=== PATIENT | male | born 1975 | race Caucasian/White ===

== ENCOUNTER 2018-01-06 11:39 | Emergency (ER) | payer OTHER ==
[~2018-01-06] VITALS: Ht 167.6 cm; Wt 93.0 kg
[2018-01-06] MEDS ORDERED: LIDOCAINE 1% Multi-Dose 20 ML VIAL. IJ ONE (12:00)
[2018-01-06] MEDS ORDERED: DIPHTH,PERTUSS(ACELL),TET TOX 0.5 ML DISP.SYRIN. VAX IM ONE (12:00)
--- NOTE | 2018-01-06 12:47 | RAD ---
History: Laceration of the right elbow. Comparison: None. Findings: AP, lateral, and oblique views of the right elbow. No acute fracture or dislocation is identified. No joint effusion is seen. Posterior elbow soft tissue gas is present, compatible with laceration. No radiopaque foreign body is seen. Impression: 1. Posterior laceration. 2. No acute osseous traumatic injury identified. Electronically signed by: Facundo Adrian MD (01/06/2018 12:44 PM) [facility]
[2018-01-06] MEDS ORDERED: HYDR-2758 PO (13:43)
[2018-01-06 13:44] VITALS: BP 141/80
--- NOTE | 2018-01-06 13:44 | PHYS DOC ---
Past History Past Medical History: High Cholesterol, Hypertension, Hypothyroid Past Surgical History: Other Alcohol Use: Heavy Drug Use: None Adult General Chief Complaint Chief Complaint: LACERATION/AVULSION HPI HPI 42-year-old male who is right-hand dominant presenting to the emergency department today after falling backwards and injuring his right elbow sustaining multiple lacerations to the elbow region. He is unsure if his tetanus is up-to-date. He denies any numbness weakness or tingling in his hand. He has a sharp pain in his elbow that is moderate constant and without alleviating factors. He denies any other injuries. Review of systems is negative for chest pain or shoulder pain wrist pain or any other injuries. All other review of systems is negative unless otherwise noted in history of present illness. ED course: 42-year-old male presenting the emergency department sustaining 5 lacerations to his elbow after falling backward on sharp metal. On examination he has one primary laceration on the volar aspect of his forearm that is proximal to the elbow. It is approximately half centimeter deep and on inspection in good lighting with good hemostasis shows no evidence of tendon or nerve injury under range of motion of the fingers. Distally the patient demonstrates the ability to make an A-OK, cross his fingers and give a thumbs up. He has normal sensation in his right hand. Palpable pulse with 2 second cap refill. The remaining for lacerations are superficial less than 1/10 of a millimeter. There are 2 or proximal to the primary laceration 1 is ulnarly lateral and the other is more dorsally located. X-ray unremarkable for any radiopaque materials. The wound does not involve the joint. The wound was washed out in the emergency department with sterile saline. The area around the wound was cleansed with Betadine. The wound was numbed up with 1% lidocaine and the primary laceration was sutured with simple interrupted sutures. The 2 proximal lacerations or 1 cm in length were reapproximated by a single suture to bring the skin together and overlying Steri-Strips. The remaining of the lacerations were repaired by Steri-Strips. The wound was covered with nonadherent dressing. He will return to clinic in 7 days for suture removal.The patient has been examined and was not found to have an emergency medical condition. The patient was then discharged home in stable condition. They were to return if their symptoms worsened or if they were concerned for any reason. [id number] discharge instructions and return precautions were given. Patient' s questions were answered to their satisfaction. Patient is comfortable with plan. Review of Systems Review of Systems SEE ABOVE. Current Medications Current Medications Current Medications Medications (Trade) Dose Ordered Sig/Kyler Start Time Stop Time Status Last Admin Dose Admin Diphtheria/ Tetanus/Acell Pertussis (Boostrix) 0.5 ml ONCE ONCE 01/06/18 12:00 01/06/18 12:06 DC 01/06/18 12:21 0.5 ML Lidocaine HCl 10 ml 1X ONCE 01/06/18 12:00 01/06/18 12:06 DC 01/06/18 12:21 10 ML Allergies Allergies Allergies Coded Allergies Type Severity Reaction Last Updated Verified No Known Drug Allergies 01/06/18 No Physical Exam Physical Exam SEE ABOVE Constitutional: Well developed, well nourished, no acute distress, non-toxic appearance. [] HENT: Normocephalic, atraumatic, bilateral external ears normal, oropharynx moist, no oral exudates, nose normal. [] Eyes: PERRLA, EOMI, conjunctiva normal, no discharge. [] Neck: Normal range of motion, no tenderness, supple, no stridor. [] Cardiovascular:Heart rate regular rhythm, no murmur [] Lungs & Thorax: Bilateral breath sounds clear to auscultation [] Abdomen: Bowel sounds normal, soft, no tenderness, no masses, no pulsatile masses. [] Skin: Warm, dry, no erythema, no rash. [] Back: No tenderness, no CVA tenderness. [] RUE: lacerations described as above. Nontender wrist. Normal range of motion of the elbow. Normal range of motion of the shoulder. The remainder the extremities are nontender with normal range of motion. Atraumatic. Neurologic: Alert and oriented X 3, normal motor function, normal sensory function, no focal deficits noted. [] Psychologic: Affect normal, judgement normal, mood normal. [] Current Patient Data Vital Signs Vital Signs Date Time Temp Pulse Resp B/P (MAP) Pulse Ox O2 Delivery O2 Flow Rate FiO2 01/06/18 11:40 98.6 104 16 100 Room Air EKG EKG [] Radiology/Procedures Radiology/Procedures [] Course & Med Decision Making Course & Med Decision Making Pertinent Labs and Imaging studies reviewed. (See chart for details) [] Dragon Disclaimer Dragon Disclaimer This electronic medical record was generated, in whole or in part, using a voice recognition dictation system. Departure Departure: Impression: Primary Impression: Multiple lacerations Additional Impression: Elbow injury Disposition: 01 HOME, SELF-CARE Condition: STABLE Referrals: ALEX CASTILLO (PCP) Patient Instructions: Laceration Care, Adult Additional Instructions: Thank you for allowing us to participate in your care today. Followup with your primary care physician in 7 days for wound evaluation and possible suture removal. Call your Primary Doctor tomorrow and inform them of your visit today. If you do not have a primary care provider you can ask for a list of our primary care providers. Return to the emergency department you have any new or concerning findings. This should be evaluated by the primary care physician and any necessary consulting services for continued management within a few days after discharge. Return to emergency room if you have any new or concerning symptoms including but not limited to fever, chills, nausea, vomiting, intractable pain, any new rashes, chest pain, shortness of air, uncontrolled bleeding, difficulty breathing, and/or vision loss. If at any time, you are having difficulty getting into your primary care doctor or a specialist, return to the emergency department. You may have been prescribed medication or given medication in the emergency department that can change in your level of thinking and ability to operate machinery. These medications include hydrocodone and Ativan. Also, Benadryl has been known to do this as well. Be sure to check with your pharmacist and ask if the medications you've prescribed can affect your level of consciousness. I recommend not operating heavy machinery or driving while on medication such as these. Scripts Hydrocodone Bit/Acetaminophen (HYDROCODONE-APAP 5-325 ) 1 Each Tablet 1 TAB PO PRN Q6HRS PRN for PAIN, #10 TAB 0 Refills Prov: PJ IVAN MD 01/06/18 Laceration Repair Lac Repair Indication: multiple lacerations Procedure: The patient was placed in the appropriate position and anesthesia around the elbow lacerations. 1% lidocaine 5 mL used for analgesia. The area was then cleansed with normal saline. The laceration was closed with simple interrupted technique. Secondary lacerations were repaired using Steri-Strips. There were two 1cm lacerations in parallel that were brought together using a single suture prior to steri-strip reapproximation. Total repaired wound length: 5 total lacerations. 5cm- primary 1cm 1cm 1.5 cm and 2 cm Other Items: none The patient tolerated the procedure well. Complications: none. Problem Qualifiers PJ IVAN MD January 06, 2018 13:44
== END 2018-01-06 13:50 | disposition home or self-care (01) ==
LOC: ER 11:39
DX: S51.011A Laceration without foreign body of right elbow, initial encounter (principal); I10 Essential (primary) hypertension; E03.9 Hypothyroidism, unspecified; E78.00 Pure hypercholesterolemia, unspecified; F10.10 Alcohol abuse, uncomplicated; W19.XXXA Unspecified fall, initial encounter; Y93.89 Activity, other specified; Y99.8 Other external cause status; Y92.89 Other specified places as the place of occurrence of the external cause
CPT/HCPCS: 12002; 73080; 90471; 90715; 99285-25